=== PATIENT | male | born 1975 | race Caucasian/White ===

== ENCOUNTER 2019-07-20 10:08 | Day surgery (SDC) | payer BC ==
[~2019-07-20 10:08] MED LIST: Buffered Lidocaine 1% SYRIN* 1 ML/SYRINGE INTRADERM ONE; Dexamethasone TAB* 4 MG ONE; Dexamethasone TAB* 4 MG PO ONE; DiMENhydriNATE IV* 50 MG/ML VIAL IV PUSH PRN; Famotidine IV* 10 MG/ML 2 ML (20 mg) IV ONE; Famotidine IV* 10 MG/ML 2 ML (20 mg) ONE; HYDROmorphone INJ1* 1 MG/ML SYRINGE IV PRN; Lactated Ringers 1000 ML Bag* 1,000 ML IV SCH; Naloxone* 0.4 MG/ML 1 ML VIAL IV PRN; Ondansetron ODT TAB* 4 MG ONE; Ondansetron ODT TAB* 4 MG PO ONE; PROCHLORPERAZINE INJ 5 MG/ML 2 ML VIAL IV PRN; Scopolamine 1.5 mg* PATCH TRANSDERM PRN; fentaNYL* 50 MCG/ML 2 ML VIAL (100 MCG VIAL) IV PRN; oxyCODONE/Acetamin 5/325 MG* TAB PO PRN
[2019-07-20] MEDS ORDERED: ceFAZolin 2 GM in NS PREMIX(*) 2 GM/100 ML BAG IVPB ONE (10:26)
[2019-07-20] MEDS ORDERED: Ropivacaine 0.2% * 2 MG/ML VIAL ONE (10:37)
[2019-07-20] MEDS ORDERED: Lidocaine 1% w EPI 1:200,000* SDV 30 ML VIAL ONE (10:37)
[2019-07-20] MEDS ORDERED: fentaNYL* 50 MCG/ML 2 ML VIAL (100 MCG VIAL) ONE (10:54)
[2019-07-20] MEDS ORDERED: KETAMINE HCL* 50 MG/ML 10 ML VIAL ONE (10:54)
[2019-07-20] MEDS ORDERED: Midazolam* 1 MG/ML 5 ML VIAL (5 MG) ONE (10:54)
[2019-07-20] MEDS ORDERED: Lidocaine 2% PF * 5 ML VIAL ONE ×2 (11:21→13:11)
[2019-07-20] MEDS ORDERED: Ketorolac INJ* 30 MG/ML 1 ML VIAL ONE ×2 (11:21→13:11)
[2019-07-20] MEDS ORDERED: Propofol* 10 MG/ML 20 ML BTL ONE ×2 (11:21→13:11)
[2019-07-20] MEDS ORDERED: Chloroprocaine 2%* 20 ML VIAL ONE (12:09)
[2019-07-20] MEDS ORDERED: DiMENhydriNATE IV* 50 MG/ML VIAL ONE (13:11)
[2019-07-20] MEDS ORDERED: EPHEDrine (Pressors)* 50 MG/ML VIAL ONE (13:11)
[2019-07-20] MEDS ORDERED: Phenylephrine 40 MCG/ML SYRINGE ONE (13:11)
--- NOTE | 2019-07-20 14:27 | OP ---
OPERATIVE REPORT: DATE OF OPERATION: 07/20/19 DATE OF : 75 SURGEON: Cecilio Hernandez MD UNLEAVENED DOUGH MIXER: None available. PRE-OP DIAGNOSIS: Right knee mild arthritis with medial meniscal radial split tear. POST-OP DIAGNOSIS: Right knee mild arthritis with medial meniscal radial split tear. OPERATIVE PROCEDURE: Right knee arthroscopy with chondroplasty of the patella and medial femoral con dyle, partial medial meniscectomy, synovectomy, removal of plica medially and laterally. COMPLICATIONS: None. ESTIMATED BLOOD LOSS: Minimal. TOURNIQUET TIME: Zero minutes. INDICATIONS: Hugh Stevens is a 43-year-old male, who presented with catching and locking about the medi al aspect of the knee. He has injured his knee. He has had persistent difficulty. He does have dangelo e varus alignment and mild osteoarthritis of the knee, but he had mechanical symptoms. After extensi ve discussion of the risks and benefits of operative versus nonoperative treatment, he has elected to proceed with operative treatment. DESCRIPTION OF PROCEDURE: The patient was greeted in the preoperative area by the attending surgeon. Correct extremity was marked and consent was confirmed. The patient was brought back to the operat ing suite where he was placed in supine position on the operating table. He then underwent spinal an esthesia, after which he was then appropriately positioned on the bed. An unsterile tourniquet was p laced high on the proximal thigh. The right leg was then prepped and draped in the usual sterile fas hion beginning with chlorhexidine soap, scrub, and alcohol wipe, and a final prep with ChloraPrep. After an appropriate surgical pause indicating side, site, procedure, and administration of antibioti cs, the knee was intraarticularly injected with 1% lidocaine. The 11-blade was then used to make the anterolateral incision. The scope was brought into the joint and the joint was examined. There was abundant synovitis that was present. The anteromedial portal was made in an outside-in fashion. Sh aver was used to debride back the abundant synovitis that was present. This was very hyperemic. The electrocautery device was then used to maintain hemostasis. There were 2 large plicae, 1 medial and 1 lateral that were released to allow for visualization. There were some chondral changes to the med ial femoral condyle, grade 2 changes. No grade 3 changes in the patellofemoral joint. The trochlea had grade 0 to 1 changes. The patella had a small central area with grade 1 and 2 changes of unstabl e flaps. This was debrided back using shaver. Once the plicae were removed, the medial and lateral gutters were investigated and found to be without any loose debris. ACL and PCL were intact. The me dial compartment was examined. The medial plateau had grade 1 changes. The medial femoral condyle a gain had some grade 2 changes with unstable flaps. This was debrided back. There was an unstable ra dial split tear kind of at the junction of the posterior third to medial third. This was then debrid ed back using biters and bob to allow for stable layer. All excess debris was removed. The shav er was used to smooth it down. The knee was then placed in zsqwyw-sj-eygi position and the lateral c ompartment was examined. There were grade 0 to 1 changes in the lateral femoral condyle and lateral plateau. The knee was then thoroughly lavaged. There was no evidence of unstable tear at the latera l meniscus. The knee was then thoroughly lavaged removing any loose debris. The wounds were then co piously irrigated with sterile saline. Final images were obtained. The portals were then closed wit h 3-0 nylon in interrupted fashion. The knee was superficially and intra-articularly injected with 0 .2% ropivacaine. Sterile dressings were applied. A Cryo/Cuff was applied. He was awoken from [facility] and transferred to the PACU in stable condition. POSTOPERATIVE PLAN: He will be weightbearing as tolerated with crutches for 3 to 5 days. Discharged on pain medication. DVT prophylaxis was considered, but deferred due to no previous personal or fam dionicio history. I will see the patient back in 10 to 14 days. [id number]/[facility] #: [id number]
[2019-07-20 14:59] VITALS: BP 130/83
[2019-07-23] MEDS ORDERED: Scopolamine PATCH Remove* 1 NOTE MISC PATCH OFF ONE (05:55)
== END 2019-07-20 14:47 | disposition home or self-care (01) ==
LOC: OREAST 10:08
PROVIDERS: ATTEND Orthopaedic Surgery
DX: S83.241A Other tear of medial meniscus, current injury, right knee, initial encounter (principal); M17.11 Unilateral primary osteoarthritis, right knee; Z68.35 Body mass index [BMI] 35.0-35.9, adult; X58.XXXA Exposure to other specified factors, initial encounter; Y93.66 Activity, soccer; Y92.322 Soccer field as the place of occurrence of the external cause
CPT/HCPCS: A9270-GY; J0690; J1240; J1885; J2001; J2250; J2400; J2704; J2795; J3010; J8540

== ENCOUNTER 2020-07-17 14:21 | Inpatient (IN) ==
[2020-07-17 16:47] LABS: ABS Eosinophils 0.2 10^3/ul (0-0.6); ABS Lymphocytes 1.3 10^3/ul (1.0-4.8); ABS Monocytes 0.9 10^3/ul (0-0.8); ABS Neutrophils 4.6 10^3/ul (1.5-7.7); Eosinophil % 2.5 %; Hematocrit 42 % (42-52); Hemoglobin 13.7 g/dL (14.0-18.0); Mean Corpuscular HGB Conc 33 g/dL (31-36); Mean Corpuscular Hemoglobin 27 pg (27-31); Mean Corpuscular Volume 82 fL (80-94); Mean Platelet Volume 7.4 fL (7.4-10.4); Platelet Count 195 10^3/uL (150-450); Red Blood Count 5.06 10^6 /uL (4.18-5.48); Red Cell Distribution Width 14 % (10-15); White Blood Count 6.9 10^3/uL (3.5-10.8)
[2020-07-17 17:01] LABS: Influenza A Molecular Negative (Negative); Influenza B Molecular Negative (Negative)
[2020-07-17 17:04] LABS: Activated Partial Thrombo Time 29.5 seconds (26.0-38.0); INR 1.03 (0.82-1.09)
[2020-07-17 17:06] LABS: Albumin 4.1 g/dL (3.2-5.2); Albumin/Globulin Ratio 1.8 (1-3); BUN/Creatinine Ratio 13.9 (8-20); C Reactive Protein 20.17 mg/L (<8.01); Calcium 8.7 mg/dL (8.6-10.3); EGFR African American 128.9 (>60); EGFR Non-African American 106.6 (>60); Globulin 2.3 g/dL (2-4); Potassium 3.8 mmol/L (3.5-5.0); Total Bilirubin 0.4 mg/dL (0.2-1.0); Total Protein 6.4 g/dL (6.4-8.9)
[2020-07-17 17:27] LABS: Troponin I 0.01 ng/mL (<0.03)
[2020-07-17] MEDS ORDERED: Iohexol 350 (CONTRAST) 500 ML MDV IV ONE (18:46)
[2020-07-17 21:57] LABS: Urine Appearance Cloudy; Urine Bilirubin Negative (Negative); Urine Blood Negative (Negative); Urine Color Yellow; Urine Glucose Negative (Negative); Urine Ketones Negative (Negative); Urine Nitrite Negative (Negative); Urine Protein Negative (Negative); Urine Specific Gravity 1.036 (1.010-1.030); Urine Urobilinogen Negative (Negative)
[2020-07-17 22:12] LABS: ABS Eosinophils 0.2 10^3/ul (0-0.6); ABS Lymphocytes 1.2 10^3/ul (1.0-4.8); ABS Monocytes 1.1 10^3/ul (0-0.8); Eosinophil % 2.5 %; Hematocrit 39 % (42-52); Hemoglobin 13.4 g/dL (14.0-18.0); Lymphocyte % 14.4 %; Mean Corpuscular HGB Conc 34 g/dL (31-36); Mean Corpuscular Hemoglobin 28 pg (27-31); Mean Corpuscular Volume 81 fL (80-94); Mean Platelet Volume 7.5 fL (7.4-10.4); Platelet Count 189 10^3/uL (150-450); Red Cell Distribution Width 14 % (10-15); White Blood Count 8.6 10^3/uL (3.5-10.8)
[2020-07-17] MEDS: Heparin 5000 UNITS/ML 1 mL VIAL IV SCH (22:12)
[2020-07-17] MEDS: Heparin DRIP 25,000 UNITS BAG 25,000 UNITS/500 ML BAG IV SCH (22:13)
[2020-07-17 22:27] LABS: EGFR African American 130.8 (>60); EGFR Non-African American 108.1 (>60)
[2020-07-18] MEDS: Lactated Ringers 1000 ml BAG 1,000 ML IV SCH ×2 (00:10→14:07)
[2020-07-18] MEDS: Heparin 5000 UNITS/ML 1 mL VIAL IV SCH ×2 (05:17→23:14)
[2020-07-18 05:26] LABS: Potassium 3.9 mmol/L (3.5-5.0)
[2020-07-18 05:32] LABS: BUN/Creatinine Ratio 14.1 (8-20); EGFR African American 130.8 (>60); EGFR Non-African American 108.1 (>60)
[2020-07-18 06:09] LABS: ABS Eosinophils 0.2 10^3/ul (0-0.6); ABS Lymphocytes 1.5 10^3/ul (1.0-4.8); ABS Monocytes 1.1 10^3/ul (0-0.8); ABS Neutrophils 5.5 10^3/ul (1.5-7.7); Eosinophil % 2.5 %; Hematocrit 38 % (42-52); Lymphocyte % 17.6 %; Mean Corpuscular HGB Conc 34 g/dL (31-36); Mean Corpuscular Hemoglobin 28 pg (27-31); Mean Corpuscular Volume 82 fL (80-94); Mean Platelet Volume 7.3 fL (7.4-10.4); Platelet Count 186 10^3/uL (150-450); Red Blood Count 4.61 10^6 /uL (4.18-5.48); Red Cell Distribution Width 14 % (10-15); White Blood Count 8.3 10^3/uL (3.5-10.8)
[2020-07-18] MEDS ORDERED: Perflutren Lipid Microsphere 3 ML VIAL ONE (08:41)
[2020-07-18 09:26] LABS: Magnesium 1.9 mg/dL (1.9-2.7)
[2020-07-18] MEDS ORDERED: Iohexol 300 (CONTRAST) 10 ML SDV IV ONE (12:06)
[2020-07-18] MEDS: Heparin DRIP 25,000 UNITS BAG 25,000 UNITS/500 ML BAG IV SCH (16:48)
[2020-07-18] MEDS: Calcium Carb 1250 mg TAB (500 mg elemental calcium) PO SCH (16:52)
[2020-07-18] MEDS: Multivitamins/Minerals TAB PO SCH (16:52)
[2020-07-19] MEDS: Lactated Ringers 1000 ml BAG 1,000 ML IV SCH (02:19)
[2020-07-19 06:08] LABS: ABS Eosinophils 0.2 10^3/ul (0-0.6); ABS Lymphocytes 1.4 10^3/ul (1.0-4.8); ABS Monocytes 1.1 10^3/ul (0-0.8); ABS Neutrophils 4.6 10^3/ul (1.5-7.7); Eosinophil % 2.3 %; Hematocrit 38 % (42-52); Lymphocyte % 19.1 %; Mean Corpuscular HGB Conc 34 g/dL (31-36); Mean Corpuscular Hemoglobin 28 pg (27-31); Mean Corpuscular Volume 81 fL (80-94); Mean Platelet Volume 7.1 fL (7.4-10.4); Platelet Count 188 10^3/uL (150-450); Red Blood Count 4.65 10^6 /uL (4.18-5.48); Red Cell Distribution Width 14 % (10-15); White Blood Count 7.3 10^3/uL (3.5-10.8)
[2020-07-19 06:22] LABS: EGFR African American 132.8 (>60); EGFR Non-African American 109.8 (>60)
[2020-07-19] MEDS ORDERED: Influenza VAC *QUAD* 2020-21* 0.5 ML SYRINGE IM ONE (09:00)
[2020-07-19] MEDS: Heparin DRIP 25,000 UNITS BAG 25,000 UNITS/500 ML BAG IV SCH (11:06)
[2020-07-19] MEDS: Heparin 5000 UNITS/ML 1 mL VIAL IV SCH (12:44)
[2020-07-19] MEDS: Calcium Carb 1250 mg TAB (500 mg elemental calcium) PO SCH (17:09)
[2020-07-19] MEDS: Multivitamins/Minerals TAB PO SCH (17:10)
[2020-07-20] MEDS: Heparin DRIP 25,000 UNITS BAG 25,000 UNITS/500 ML BAG IV SCH ×2 (00:04→14:21)
[2020-07-20 08:59] LABS: ABS Eosinophils 0.2 10^3/ul (0-0.6); ABS Lymphocytes 1.2 10^3/ul (1.0-4.8); ABS Monocytes 0.6 10^3/ul (0-0.8); Eosinophil % 2.9 %; Hematocrit 42 % (42-52); Lymphocyte % 16.9 %; Mean Corpuscular HGB Conc 33 g/dL (31-36); Mean Corpuscular Hemoglobin 27 pg (27-31); Mean Corpuscular Volume 82 fL (80-94); Mean Platelet Volume 7.2 fL (7.4-10.4); Platelet Count 245 10^3/uL (150-450); Red Blood Count 5.16 10^6 /uL (4.18-5.48); Red Cell Distribution Width 14 % (10-15)
[2020-07-20] MEDS: Calcium Carb 1250 mg TAB (500 mg elemental calcium) PO SCH (17:02)
[2020-07-20] MEDS: Multivitamins/Minerals TAB PO SCH (17:02)
[2020-07-21 06:17] LABS: ABS Eosinophils 0.2 10^3/ul (0-0.6); ABS Lymphocytes 1.3 10^3/ul (1.0-4.8); ABS Neutrophils 4.2 10^3/ul (1.5-7.7); Eosinophil % 3.4 %; Hematocrit 41 % (42-52); Hemoglobin 13.8 g/dL (14.0-18.0); Lymphocyte % 19.1 %; Mean Corpuscular HGB Conc 34 g/dL (31-36); Mean Corpuscular Hemoglobin 28 pg (27-31); Mean Corpuscular Volume 83 fL (80-94); Nucleated Red Blood Cells % 0.1; Platelet Count 248 10^3/uL (150-450); Red Blood Count 4.99 10^6 /uL (4.18-5.48); Red Cell Distribution Width 14 % (10-15); White Blood Count 6.8 10^3/uL (3.5-10.8)
[2020-07-21 06:38] LABS: EGFR African American 127.1 (>60)
[2020-07-21] MEDS ORDERED: Benzocaine/Butamben/Tetracain (CETACAINE - SINGLE USE) 5 gm TOPICAL ONE (12:33)
[2020-07-21] MEDS ORDERED: Sodium Citrate/Citric Acid LIQ 15 ML UDC ONE (12:42)
[2020-07-21] MEDS ORDERED: Famotidine IV 10 MG/ML 2 ml VIAL (20 mg) ONE (12:42)
[2020-07-21] MEDS ORDERED: Midazolam 2 mg/2 ml VIAL 1 mg/ml 2 ml VIAL (2 mg) ONE (12:48)
[2020-07-21] MEDS ORDERED: fentaNYL 250 mcg/5 ml 50 MCG/ML 5 ml VIAL (250 MCG) ONE (12:48)
[2020-07-21] MEDS ORDERED: Rocuronium 50 mg VIAL 10 mg/ml 5 ml VIAL (50 mg) ONE (12:49)
[2020-07-21] MEDS ORDERED: Lidocaine 2% PF 5 ML VIAL ONE (12:51)
[2020-07-21] MEDS ORDERED: Propofol 10 MG/ML 20 ML BTL ONE (12:52)
[2020-07-21] MEDS ORDERED: Sodium Citrate/Citric Acid LIQ 15 ML UDC PO ONE (13:20)
[2020-07-21] MEDS ORDERED: Famotidine IV 10 MG/ML 2 ml VIAL (20 mg) IV SLOW PU ONE (13:20)
[2020-07-21] MEDS ORDERED: Naloxone 0.4 mg VIAL 0.4 mg/ml 1 ml VIAL IV PRN (13:38)
[2020-07-21] MEDS ORDERED: Ondansetron 4 mg VIAL 2 MG/ML 2 ml VIAL IV PRN (13:38)
[2020-07-21] MEDS ORDERED: fentaNYL 100 mcg/2 ml 50 MCG/ML VIAL IV PRN (13:38)
[2020-07-21] MEDS ORDERED: HYDROmorphone 1 MG/1 ML SYRINGE IV PRN (13:38)
[2020-07-21] MEDS: Calcium Carb 1250 mg TAB (500 mg elemental calcium) PO SCH (17:48)
[2020-07-21] MEDS: Multivitamins/Minerals TAB PO SCH (17:48)
[2020-07-21 18:42] VITALS: BP 147/88
== END 2020-07-21 18:44 | disposition home or self-care (01) | DRG 134 ==
LOC: ED 14:21 → MEDTELE 22:55
PROVIDERS: ADMIT Internal Medicine; ATTEND Internal Medicine

== ENCOUNTER 2020-12-15 07:47 | Observation (INO) ==
[~2020-12-15 07:47] MED LIST changes: +Buffered Lidocaine 1% SYRIN 1 ml INTRADERM ONE; -Buffered Lidocaine 1% SYRIN* 1 ML/SYRINGE INTRADERM ONE; -Dexamethasone TAB* 4 MG ONE; -Dexamethasone TAB* 4 MG PO ONE; -DiMENhydriNATE IV* 50 MG/ML VIAL IV PUSH PRN; -Famotidine IV* 10 MG/ML 2 ML (20 mg) IV ONE; -Famotidine IV* 10 MG/ML 2 ML (20 mg) ONE; -HYDROmorphone INJ1* 1 MG/ML SYRINGE IV PRN; -Lactated Ringers 1000 ML Bag* 1,000 ML IV SCH; +Lactated Ringers 1000 ml BAG 1,000 ML IV SCH; -Naloxone* 0.4 MG/ML 1 ML VIAL IV PRN; -Ondansetron ODT TAB* 4 MG ONE; -Ondansetron ODT TAB* 4 MG PO ONE; -PROCHLORPERAZINE INJ 5 MG/ML 2 ML VIAL IV PRN; -Scopolamine 1.5 mg* PATCH TRANSDERM PRN; -fentaNYL* 50 MCG/ML 2 ML VIAL (100 MCG VIAL) IV PRN; -oxyCODONE/Acetamin 5/325 MG* TAB PO PRN
[2020-12-15] MEDS ORDERED: Phenylephrine IV 10 MG/ML 1 ml VIAL ONE (08:03)
[2020-12-15] MEDS ORDERED: Midazolam 2 mg/2 ml VIAL 1 mg/ml 2 ml VIAL (2 mg) ONE (08:03)
[2020-12-15] MEDS ORDERED: Lidocaine 2% PF 5 ML VIAL ONE (08:03)
[2020-12-15] MEDS ORDERED: Ondansetron 4 mg VIAL 2 MG/ML 2 ml VIAL ONE ×2 (08:08→13:00)
[2020-12-15] MEDS ORDERED: Dexamethasone IV 4 MG/ML VIAL 1 ml VIAL ONE (08:08)
[2020-12-15] MEDS ORDERED: Ketamine HCL 50 mg/ml 10 ml VIAL (500 MG) ONE (08:11)
[2020-12-15] MEDS ORDERED: ceFAZolin 2 GM PREMIX 2 GM/50 ML BAG ONE (08:19)
[2020-12-15 08:48] LABS: INR 1.08 (0.82-1.09)
[2020-12-15] MEDS ORDERED: fentaNYL 100 mcg/2 ml 50 MCG/ML VIAL ONE (08:48)
[2020-12-15] MEDS ORDERED: ROPIVACAINE 5 MG/ML 30 ML BTL (0.5%) ONE ×2 (08:54→09:05)
[2020-12-15] MEDS ORDERED: Propofol 10 mg/ml 100 ML BTL 200 ML ONE (09:08)
[2020-12-15] MEDS ORDERED: Bupivacaine 0.5% SDV PF 30ML VIAL ONE (09:36)
[2020-12-15] MEDS ORDERED: diPHENhydraMINE IV 50 MG/ML 1 ml VIAL (BENADRYL) IV PRN ×2 (09:54→10:05)
[2020-12-15] MEDS ORDERED: Ondansetron 4 mg VIAL 2 MG/ML 2 ml VIAL IV PRN ×2 (09:54→10:05)
[2020-12-15] MEDS ORDERED: HYDROmorphone 1 MG/1 ML SYRINGE IV PRN (09:54)
[2020-12-15] MEDS ORDERED: Naloxone 0.4 mg VIAL 0.4 mg/ml 1 ml VIAL IV PRN (09:54)
[2020-12-15] MEDS ORDERED: diPHENhydraMINE 25 mg TAB PO PRN (10:05)
[2020-12-15] MEDS ORDERED: oxyCODONE/Acetamin 5/325 mg TAB PO PRN (10:05)
[2020-12-15] MEDS ORDERED: Magnesium Hydroxide LIQ 30 ML UDC PO PRN (10:05)
[2020-12-15] MEDS ORDERED: Morphine 2 MG/ML SYRINGE IV PRN (10:05)
[2020-12-15] MEDS ORDERED: Lactulose 30 ml UDC PO PRN (10:05)
[2020-12-15] MEDS ORDERED: Ondansetron ODT 4 mg TAB 4 MG TAB PO PRN (10:05)
[2020-12-15] MEDS ORDERED: HYDROmorphone 1 MG/1 ML SYRINGE ONE (10:59)
[2020-12-15] MEDS ORDERED: Prochlorperazine 5 mg/ml 2 ml VIAL (10 mg) IV PRN (13:51)
[2020-12-15] MEDS ORDERED: Prochlorperazine 5 mg/ml 2 ml VIAL (10 mg) ONE (13:53)
[2020-12-15] MEDS: ceFAZolin 1 GM ADVAN 1 GM in NS 0.9% 50 ML 50 ML IVPB SCH (18:20)
[2020-12-15] MEDS: Lactated Ringers 1000 ml BAG 1,000 ML IV SCH (20:12)
[2020-12-15] MEDS: Magnesium Hydroxide LIQ 30 ML UDC PO SCH (20:15)
[2020-12-16] LABS: Calcium 9.2 mg/dL (8.6-10.3); EGFR African American 126.5 (>60); EGFR Non-African American 104.5 (>60); Potassium 4.2 mmol/L (3.5-5.0)
[2020-12-16] MEDS ORDERED: Magnesium Sulfate 2 gm BAG 2 GM/50 ML BAG IVPB ONE (00:19)
[2020-12-16] MEDS: Lactated Ringers 1000 ml BAG 1,000 ML IV SCH (00:43)
[2020-12-16] MEDS: ceFAZolin 1 GM ADVAN 1 GM in NS 0.9% 50 ML 50 ML IVPB SCH ×2 (02:17→11:03)
[2020-12-16 05:47] LABS: Hematocrit 38 % (42-52); Hemoglobin 12.5 g/dL (14.0-18.0); Mean Platelet Volume 7.1 fL (7.4-10.4); Platelet Count 248 10^3/uL (150-450)
[2020-12-16 07:55] VITALS: BP 129/69
[2020-12-16] MEDS ORDERED: Vitamin THERAPEUTIC TAB PO SCH (09:00)
[2020-12-16 09:26] LABS: ABS Lymphocytes 0.6 10^3/ul (1.0-4.8); ABS Monocytes 0.8 10^3/ul (0-0.8); ABS Neutrophils 8.8 10^3/ul (1.5-7.7); Eosinophil % 0.3 %; Hematocrit 40 % (42-52); Hemoglobin 13.2 g/dL (14.0-18.0); Lymphocyte % 5.8 %; Mean Corpuscular HGB Conc 33 g/dL (31-36); Mean Corpuscular Hemoglobin 27 pg (27-31); Mean Corpuscular Volume 81 fL (80-94); Mean Platelet Volume 7.3 fL (7.4-10.4); Platelet Count 276 10^3/uL (150-450); Red Blood Count 4.96 10^6 /uL (4.18-5.48); Red Cell Distribution Width 14 % (10-15); White Blood Count 10.3 10^3/uL (3.5-10.8)
[2020-12-16 09:48] LABS: BUN/Creatinine Ratio 13.6 (8-20); Calcium 8.5 mg/dL (8.6-10.3); EGFR African American 124.7 (>60); Magnesium 2.4 mg/dL (1.9-2.7); Potassium 3.8 mmol/L (3.5-5.0)
[2020-12-16] MEDS: Magnesium Hydroxide LIQ 30 ML UDC PO SCH (11:03)
[2020-12-18] MEDS ORDERED: Scopolamine PATCH Remove NOTE PATCH OFF ONE (14:06)
== END 2020-12-16 12:55 | disposition home or self-care (01) ==
LOC: SSU 07:47 → OR 07:47 → EDSTATUS 08:45
PROVIDERS: ADMIT Orthopaedic Surgery Adult Reconstructive Orthopaedic Surgery; ATTEND Orthopaedic Surgery Adult Reconstructive Orthopaedic Surgery